=== PATIENT | female | born 1980 | race African-American/Black ===

== ENCOUNTER 2020-05-06 21:32 | Emergency (ER) | payer BC, SELFPAY ==
--- NOTE | ~2020-05-06 | XR_ITS ---
XR knee LT 2V DATE: 05/06/2020 22:14 INDICATION: Medial patellar pain, hurts to walk. No injury. TECHNIQUE: AP and lateral views COMPARISON: 08/18/2018 left knee FINDINGS: There is moderate loss of knee joint space and periarticular spurring at the medial compart ment, consistent with osteoarthritis. No fracture, dislocation, joint effusion, radiopaque intra-articular loose body or chondrocalcinosis. No periosteal reaction or bone destruction. IMPRESSION: Medial compartment osteoarthritis Reviewed, dictated and finalized at location A.
[2020-05-06 21:54] VITALS: BP 138/96; PULSE 106; RESP 18; TEMP 36.1; O2SAT 98
--- NOTE | 2020-05-06 22:17 | ED.EXTPRO ---
HPI - Extremity Problem General Chief complaint: Extremity Problem,Nontraumatic Stated complaint: left knee pain Time Seen by Provider: 05/06/20 22:09 Source: patient Mode of arrival: ambulatory Limitations: no limitations History of Present Illness HPI Narrative: 39-year-old with a history of hypertension here with complaints of left knee pain on and off for last several weeks however today she accidentally twisted her knee and ever since then she has been having pain. She denies any direct trauma no other complaints expressed at this time. MD Complaint: joint paint Onset (ago): week(s) (1) Pain Consistency: constant Location: left Quality: aching Radiation: none Relieving factors: immobilization Exacerbating factors: range of motion and walking Associated symptoms: denies other symptoms Related Data Home Medications Medication Instructions Recorded Confirmed lisinopril-hydrochlorothiazide 10 tablet PO DAILY 03/06/19 03/06/19 Allergies Allergy/AdvReac Type Severity Reaction Status Date / Time No Known Allergies Allergy Unverified 03/06/19 11:51 Review of Systems Review of Systems: All systems reviewed & are unremarkable except as noted in HPI and below Constitutional: Constitutional: Reports no additional constitutional complaints Eyes: Eyes: Reports no additional eye complaints ENT: Reports system reviewed and no additional complaints, except as documented Cardiovascular: Cardiovascular: Reports no additional cardiovascular complaints Respiratory: Respiratory: Reports no additional respiratory complaints Musculoskeletal: Musculoskeletal: Reports as per HPI Neurologic: Reports system reviewed and no additional complaints, except as documented Exam Narrative: Exam Narrative: GENERAL: Well-appearing, morbidly obese, and in no acute distress. HEAD: Normocephalic, atraumatic. EYES: PERRLA and EOMI. NECK: Supple. CHEST: Clear to auscultation. No respiratory distress. HEART: Regular rate and rhythm. No murmur heard. Normal peripheral pulses. EXTREMITIES: Normal range of motion. No edema. Left knee no joint effusion .painful ROM SKIN: Warm, dry, no rash. NEURO: No focal deficits. Alert and oriented x3. PSYCH: Normal mood and affect. Course Course Emergency Course: Inform patient about her eye x-ray findings. Advised Manuel wrap and take pain medication as prescribed. Vital Signs Vital signs: Vital Signs Temperature 36.1 C L 05/06/20 21:54 Pulse Rate 106 H 05/06/20 21:54 Respiratory Rate 18 05/06/20 21:54 Blood Pressure 138/96 H 05/06/20 21:54 Pulse Oximetry 98 05/06/20 21:54 Temperature 36.1 C L 05/06/20 21:54 Pulse Rate 106 H 05/06/20 21:54 Respiratory Rate 18 05/06/20 21:54 Blood Pressure 138/96 H 05/06/20 21:54 Pulse Oximetry 98 05/06/20 21:54 Discharge Plan Discharge Clinical Impression: Knee pain, left Qualifiers: Chronicity: acute Qualified Code(s): M25.562 - Pain in left knee Patient Disposition: Home, Self-Care Condition: Stable Instructions: Knee Sprain (ED) Additional Instructions: take pain medication as prescribed , follow with your Orthopedic as scheduled. Prescriptions: New tramadol [Ultram] 50 mg tablet 50 mg PO Q6H PRN (Reason: pain) Qty: 20 RF: 0 No Action lisinopril-hydrochlorothiazide 10-12.5 mg tablet 10 tablet PO DAILY RF: 0 cetirizine [Zyrtec] 10 mg tablet 10 mg PO DAILY 60 Days Qty: 60 RF: 0 prednisone 20 mg tablet 60 mg PO DAILY 5 Days Qty: 15 RF: 0 benzonatate [Tessalon Perles] 100 mg capsule 100 mg PO TID Qty: 30 RF: 0 albuterol sulfate [ProAir HFA] 90 mcg/actuation HFA aerosol inhaler 2 puff INHALATION QID Qty: 8.5 RF: 0 fluticasone propionate [Allergy Relief (fluticasone)] 50 mcg/actuation spray,suspension 1 spray NASAL DAILY Qty: 18.2 RF: 0 amoxicillin-pot clavulanate 875-125 mg tablet 1 tablet PO Q12H Qty: 20 RF: 0 Follow-up/Referrals: Zi Trujillo MD [y
== END 2020-05-06 22:45 | disposition home or self-care (01) ==
PROVIDERS: Emergency Provider Family Medicine; PCP Physician Assistant
DX: M25.562 Pain in left knee (principal); I10 Essential (primary) hypertension
CPT/HCPCS: 73560; 99283

== ENCOUNTER 2020-11-10 19:06 | Emergency (ER) | payer OTHER, BC, SELFPAY ==
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
[2020-11-10 19:32] VITALS: BP 129/90; PULSE 104; RESP 18; TEMP 36.9; O2SAT 100
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
== END 2020-11-10 21:15 | disposition home or self-care (01) ==
PROVIDERS: Emergency Provider Registered Nurse; PCP Physician Assistant
DX: S16.1XXA Strain of muscle, fascia and tendon at neck level, initial encounter (principal); Z79.1 Long term (current) use of non-steroidal anti-inflammatories (NSAID); Z79.84 Long term (current) use of oral hypoglycemic drugs; E11.9 Type 2 diabetes mellitus without complications; I10 Essential (primary) hypertension; V43.52XA Car driver injured in collision with other type car in traffic accident, initial encounter; Y92.219 Unspecified school as the place of occurrence of the external cause
CPT/HCPCS: 72050; 99213; G0463

== ENCOUNTER 2021-04-02 10:10 | Emergency (ER) | payer BC, SELFPAY ==
[2021-04-02 10:24] VITALS: BP 130/89; PULSE 88; RESP 18; TEMP 36.6; O2SAT 100
--- NOTE | 2021-04-02 10:24 | ED.BACK ---
HPI - Back Pain/Injury General Chief Complaint: Extremity Problem,Nontraumatic Stated Complaint: knee and back pain Time Seen by Provider: 04/02/21 10:25 Source: patient, RN notes reviewed and old records reviewed Mode of arrival: ambulatory Limitations: no limitations History of Present Illness HPI Narrative: 40-year-old female presents to the [facility] with bilateral knee pain and mid back pain for over 3 weeks. States she ran out of her meloxicam and the pain has been getting worse. History of left knee orthoscopic surgery in the past. Denies any traumas. No falls. No numbness or tingling in extremities. MD elicited complaint: back pain Pertinent past history: prior back pain Related Data Home Medications Medication Instructions Recorded Confirmed furosemide 20 mg PO DAILY 11/10/20 04/02/21 lisinopril 10 mg PO DAILY 11/10/20 04/02/21 meloxicam 15 mg PO DAILY 11/10/20 04/02/21 metformin 500 mg PO DAILY 11/10/20 04/02/21 Allergies Allergy/AdvReac Type Severity Reaction Status Date / Time No Known Allergies Allergy Verified 11/10/20 19:59 Review of Systems Review of Systems: All systems reviewed & are unremarkable except as noted in HPI and below Constitutional: Constitutional: Reports no additional constitutional complaints, Denies chills, Denies fever(s) and Denies weakness Eyes: Eyes: Reports no additional eye complaints ENT: Reports system reviewed and no additional complaints, except as documented Cardiovascular: Cardiovascular: Reports no additional cardiovascular complaints and Denies chest pain Respiratory: Respiratory: Reports no additional respiratory complaints, Denies cough and Denies dyspnea Gastrointestinal: Gastrointestinal: Reports no additional gastrointestinal complaints, Denies abdominal pain, Denies nausea and Denies vomiting Musculoskeletal: Musculoskeletal: Reports as per HPI, Reports back pain, Reports arthralgias (Bilateral knees), Denies joint swelling and Denies numbness Integumentary/Breasts: Skin/Breast: Reports system reviewed and no additional complaints, except as docu Neurologic: Reports system reviewed and no additional complaints, except as documented, Denies focal weakness, Denies numbness and Denies weakness Psychiatric: Psychiatric: Reports no additional psychiatric complaints Allergic/Immunologic: Allergic/Immunologic: Reports no additional allergic/immunologic complaints [facility] Past Medical History Medical History (Updated 04/02/21 @ 19:49 by Leandra Coe) Diabetes Hypertension Inflammation of joint of left knee Obesity Surgical History Surgical History No history of previous surgery Family History Family History Other Family history non-contributory Social History Social History Smoking status: Never smoker Alcohol intake: unknown Substance use: unknown Gender identity (if verbalized by the patient): Female Comments At the time of my signature, I reviewed and agree with the nursing past medical, surgical, social, and family history. There is no relevant family history pertinent to the patient complaint. Exam Const: General: healthy appearing, no acute distress and alert Nutritional Appearance: well nourished and obese morbidly obese Orientation/consciousness: patient oriented x3 Limitations: no limitations HENMT: Head: normal to inspection Ears: external ears normal Eyes: Pupils: Equal, round and reactive pupils present Neck: Neck: normal visual inspection, no lymphadenopathy and no meningeal signs Chest: Chest palpation & inspection: normal inspection of the chest Resp: Effort & Inspection: normal respiratory effort and no use of accessory muscles Auscultation: clear to auscultation bilaterally, no crackles, no rales, no rhonchi and no wheezes Cardio: Rate: regular rate Rhythm: r
== END 2021-04-02 10:37 | disposition home or self-care (01) ==
PROVIDERS: Emergency Provider Nurse Practitioner; PCP Physician Assistant
DX: M25.562 Pain in left knee (principal); M25.561 Pain in right knee; M54.9 Dorsalgia, unspecified; E11.9 Type 2 diabetes mellitus without complications; I10 Essential (primary) hypertension; E66.9 Obesity, unspecified; Z68.43 Body mass index [BMI] 50.0-59.9, adult
CPT/HCPCS: 99213; G0463

== ENCOUNTER 2021-06-18 11:48 | Emergency (ER) | payer BC, SELFPAY ==
--- NOTE | ~2021-06-18 | CT_ITS ---
EXAMINATION: CT abdomen pelvis w con DATE: 06/18/2021 13:14 INDICATION: Abdominal pain TECHNIQUE: Computed tomography (CT) of the abdomen and pelvis was performed with 100 mL Omnipaque-350 intravenous contrast. Automated exposure control and iterative reconstruction technique were employe d. The dose-length product was 1539.51 mGy-cm. COMPARISON: None FINDINGS: Lung bases are clear. Heart size is normal. No pericardial or pleural effusion. Cholecystectomy clips the gallbladder fossa. Liver, spleen, pancreas, bilateral adrenal glands and kidneys are normal. [place] els including the appendix are normal. The bladder, anteverted uterus and bilateral adnexa are unrema rkable. No free intraperitoneal gas or fluid. No pathologically enlarged abdominal or pelvic lymphade nopathy. Moderate thoracic spondylosis. Mild to moderate bilateral hip osteoarthritis. Small fat-cont aining umbilical hernia with small amount of periumbilical stranding IMPRESSION: 1. No acute intra-abdominal/pelvic process. Reviewed, dictated and finalized at location B.
[2021-06-18 11:56] VITALS: BP 179/94; PULSE 102; RESP 20; TEMP 37; O2SAT 100
[2021-06-18 12:26] LABS: Basophils Absolute Auto 0.1 K/mm3 (0.0-0.1); Basophils Percent Auto 0.4 % (0.2-1.2); Eosinophils Absolute Auto 0.1 K/mm3 (0-0.3); Eosinophils Percent Auto 0.9 % (0-4.4); Hemoglobin 11.3 g/dL (12.0-15.0); Immature Granulocyte Absolute 0.03 K/mm3 (0.00-0.031); Immature Granulocyte Percent A 0.3 % (0-0.5); Lymphocytes Absolute Auto 3.57 K/mm3 (0.9-3.2); Lymphocytes Percent Auto 30.6 % (18.3-44.2); Mean Corpuscular HGB Conc 31.4 g/dl (32-36); Mean Corpuscular Hemoglobin 21.8 pg (26-34); Mean Corpuscular Volume 69.4 fl (80-100); Mean Platelet Volume 8.8 fl (7.4-10.4); Monocytes Absolute Auto 0.6 K/mm3 (0.1-0.6); Monocytes Percent Auto 5.5 % (2.6-8.5); Neutrophils Absolute Auto 7.3 K/mm3 (1.3-6.7); Neutrophils Percent Auto 62.3 % (45.5-73.1); Platelet Count Result 551 k/mm3 (150-375); Red Blood Count 5.19 M/mm3 (4.2-5.4); Red Cell Distribution Width 17.2 % (11.5-14.5); White Blood Count 11.7 K/mm3 (4.5-10.0)
--- NOTE | 2021-06-18 12:36 | ED.ABDPAIN ---
HPI - Abdominal Pain General Chief Complaint: Abdominal Pain Stated Complaint: low abd pain Time Seen by Provider: 06/18/21 12:24 Source: patient Mode of arrival: ambulatory Limitations: no limitations History of Present Illness HPI narrative: Patient is a 40-year-old female complaining of lower abdominal pain, dull, 6 out of 10, nonradiating started 2 days ago. Patient denies any chest pain, shortness of breath, nausea,, diarrhea, urinary symptoms, fever or chills. Related Data Home Medications Medication Instructions Recorded Confirmed furosemide 20 mg PO DAILY 11/10/20 04/02/21 lisinopril 10 mg PO DAILY 11/10/20 04/02/21 meloxicam 15 mg PO DAILY 11/10/20 04/02/21 metformin 500 mg PO DAILY 11/10/20 04/02/21 Allergies Allergy/AdvReac Type Severity Reaction Status Date / Time No Known Allergies Allergy Verified 11/10/20 19:59 Review of Systems Review of Systems: All systems reviewed & are unremarkable except as noted in HPI and below Constitutional: Constitutional: Denies body ache(s), Denies chills, Denies excessive sweating, Denies fatigue, Denies fever(s), Denies headache(s), Denies lethargy, Denies malaise, Denies weakness and Denies weight loss Eyes: Eyes: Denies blurry vision, Denies change in vision and Denies loss of vision ENT: Denies dizziness, Denies ear discharge, Denies headache(s), Denies lip swelling, Denies epistaxis, Denies nasal congestion, Denies neck pain, Denies throat swelling and Denies tongue swelling Cardiovascular: Cardiovascular: Denies chest pain, Denies chest pain at rest, Denies chest pain with activity, Denies diaphoresis, Denies rapid heart rate, Denies edema, Denies irregular heart rhythm, Denies lightheadedness, Denies palpitations, Denies dyspnea and Denies dyspnea on exertion Respiratory: Respiratory: Denies chest congestion, Denies cough, Denies hemoptysis, Denies dyspnea and Denies dyspnea on exertion Gastrointestinal: Gastrointestinal: Denies melena, Denies hematochezia, Denies diarrhea, Denies nausea, Denies vomiting and Denies hematemesis Musculoskeletal: Musculoskeletal: Denies abnormal gait, Denies deformity, Denies joint swelling, Denies limited range of motion, Denies neck pain and Denies numbness Neurologic: Denies Abnormal speech present, Denies abnormal gait, Denies confusion, Denies dizziness, Denies headache(s), Denies focal weakness, Denies loss of vision, Denies numbness, Denies Other visual disturbances, Denies Sensory deficit (Neuro) and Denies weakness Psychiatric: Psychiatric: Denies confusion, Denies depression, Denies auditory hallucinations, Denies homicidal ideation and Denies suicidal ideation Endocrine: Endocrine: Denies cold intolerance, Denies excessive sweating, Denies fatigue, Denies heat intolerance and Denies palpitations Hematologic/Lymphatic: Hematologic/Lymphatic: Denies easy bleeding and Denies easy bruising Allergic/Immunologic: Allergic/Immunologic: Denies lip swelling, Denies throat swelling and Denies tongue swelling PMFSH Past Medical History Medical History Diabetes Hypertension Inflammation of joint of left knee Obesity Surgical History Surgical History No history of previous surgery Family History Family History Other Family history non-contributory Social History Social History Smoking status: Never smoker Alcohol intake: unknown Substance use: unknown Gender identity (if verbalized by the patient): Female Exam Const: General: cooperative, healthy appearing, comfortable, no acute distress, well developed, alert and awake; No confusion Orientation/consciousness: oriented to person, oriented to place, oriented to time, patient oriented x3 and No confusion Limitations: no limitations HENMT: He
[2021-06-18 12:52] LABS: Alanine Aminotransferase 13 U/L (4-35); Albumin Level 4.4 g/dL (3.5-5.1); Alkaline Phosphatase 77 U/L (38-126); Anion Gap 7 mmol/L (8-16); Aspartate Amino Transferase 23 U/L (14-36); Bilirubin,Total 0.6 mg/dL (0.2-1.3); Blood Urea Nitrogen 13 mg/dL (7-17); Calcium 9.2 mg/dL (8.4-10.2); Carbon Dioxide 29 mmol/L (22-30); Chloride 100 mmol/L (98-107); Estimated CRCL calculation 149 ml/min; Estimated Glomerular Filt Rate > 60; Glucose 144 mg/dL (65-110); Lipase 39 U/L (23-300); Potassium 4.3 mmol/L (3.4-5.0); Sodium 136 mmol/L (137-145)
[2021-06-18 12:56] LABS: Add Urine Microscopic? YES; Appearance Urine Clear (Clear); Bacteria Urine Trace /hpf; Bilirubin Urine Negative (Negative); Blood Urine Negative (Negative); Color Urine Yellow (Yellow); Glucose Urine UA Negative (Negative); Ketones Urine Negative (Negative); Leukocyte Esterase Ur Trace LEU/UL (Negative); Mucus Urine Rare /lpf; Nitrate Urine Negative (Negative); Protein Urine Negative (Negative); RBC Urine 0-2 /hpf (0-2); Specific Grav Ur 1.012 (1.001-1.035); Squamous Epithelial Cell Urine Occasional /hpf (Few); Urobilinogen Urine Negative mg/dL (<2.0); WBC Urine 0-3 /hpf
[2021-06-18] MEDS: SODIUM CHLORIDE 0.9% IV 1,000 ML 999 ML IV CONT (13:02)
[2021-06-18] MEDS: KETOROLAC 30 MG/ML VIAL (*BKC) IV PUSH (14:16)
[2021-06-18 14:25] VITALS: BP 153/104; PULSE 83; RESP 16; O2SAT 98
== END 2021-06-18 14:29 | disposition home or self-care (01) ==
PROVIDERS: Emergency Provider Emergency Medicine; PCP Physician Assistant
DX: R10.30 Lower abdominal pain, unspecified (principal); E11.9 Type 2 diabetes mellitus without complications; I10 Essential (primary) hypertension; E66.9 Obesity, unspecified; Z68.43 Body mass index [BMI] 50.0-59.9, adult; Z79.84 Long term (current) use of oral hypoglycemic drugs
CPT/HCPCS: 36415; 74177; 80053; 81001; 81025; 83690; 85025; 96361; 96374; 99284; J1885; J7030; Q9967

== ENCOUNTER 2021-08-11 19:42 | Emergency (ER) | payer BC, SELFPAY ==
--- NOTE | ~2021-08-11 | XR_ITS ---
EXAM: XR knee RT 2V DATE: 08/11/2021 21:40 HISTORY: pain X 1 MONTH, atraumatic, NKI, PAIN WITH MOVEMENT . COMPARISON: None available. FINDINGS: Normal mineralization. No fracture or dislocation. No lytic or blastic lesion. Mild medial joint space narrowing. Patellofemoral and medial osteophytosis. No erosion or periosteal change. Sof t tissues within normal limits. IMPRESSION: No acute osseous finding in the right knee. Reviewed, dictated and finalized at location K.
[2021-08-11 19:55] VITALS: BP 147/94; PULSE 98; RESP 18; TEMP 36.9; O2SAT 100
[2021-08-11] MEDS: KETOROLAC 30 MG/ML VIAL (*BKC) IM (21:35)
--- NOTE | 2021-08-11 23:20 | ED.GENADULT ---
HPI - General Adult General Chief complaint: Extremity Injury, Lower <MIMI Boston Last Filed: 08/12/21 03:59> Stated complaint: right knee pain <MIMI Boston Last Filed: 08/12/21 03:59> Time Seen by Provider: 08/11/21 21:01 <MIMI Boston Last Filed: 08/12/21 03:59> History of Present Illness HPI narrative: Patient is a 41-year-old female with a history of arthritis, meniscus tear on the left, here for evaluation of right-sided knee pain for the past month. Patient denies known injury to her knee, but states that she has a history of similar sensation in her left knee when she was diagnosed with a meniscus tear. Patient has been attempting Tylenol without much relief of her pain, last taken earlier today. She has been walking and bearing weight with pain. Denies fevers, chills, falls, clicking, catching of the knee. <MIMI Boston Last Filed: 08/12/21 03:59> Related Data Home medications: Home Medications Medication Instructions Recorded Confirmed furosemide 20 mg tablet 20 mg PO DAILY 11/10/20 04/02/21 lisinopril 10 mg tablet 10 mg PO DAILY 11/10/20 04/02/21 meloxicam 15 mg tablet 15 mg PO DAILY 11/10/20 04/02/21 metformin 500 mg tablet 500 mg PO DAILY 11/10/20 04/02/21 <MIMI Boston Last Filed: 08/12/21 03:59> Allergies/adverse reactions: Allergies Allergy/AdvReac Type Severity Reaction Status Date / Time No Known Allergies Allergy Verified 08/11/21 19:57 <MIMI Boston Last Filed: 08/12/21 03:59> Review of Systems Review of Systems: Gen.: Denies fevers or chills Eyes: Denies eye pain or visual change ENT: Denies congestion Respiratory: Denies shortness of breath or cough CV: Denies chest pain or palpitations GI: Denies abdominal pain nausea, emesis or diarrhea denies burning, urgency, frequency or hematuria Musculoskeletal: Reports knee pain on the right Neuro: Denies numbness, tingling, weakness or focal weakness Skin: Denies rash Except as documented, all other systems reviewed and negative <Brook Petersen PA-C - Last Filed: 08/12/21 03:59> [facility] Past Medical History Medical History: Medical History Diabetes Hypertension Inflammation of joint of left knee Obesity <Brook Petersen PA-C - Last Filed: 08/12/21 03:59> Surgical History Surgical History: Surgical History No history of previous surgery <Brook Petersen PA-C - Last Filed: 08/12/21 03:59> Family History Family History: Family History Other Family history non-contributory <Brook Petersen PA-C - Last Filed: 08/12/21 03:59> Social History Social History: Social History Smoking status: Never smoker Alcohol intake: unknown Substance use: unknown Gender identity (if verbalized by the patient): Female <Brook Petersen PA-C - Last Filed: 08/12/21 03:59> Exam Narrative: Gen: Alert, oriented, uncomfortable appearing Eyes: EOMI, no icterus Pulm: Respirations even and unlabored, symmetric thorax expansion, no audible stridor or visible cyanosis CV: DP and PT pulses heard on Doppler bilaterally. GI: No distension, no voluntary/involuntary guarding Neuro: AOx4, moves all extremities without apparent difficulty or weakness, follows commands MSK: No bony tenderness to palpation along right patella. She has active range of motion in the right knee but does note that it is most painful when she flexes her knee. Anterior and posterior drawer test negative. Skin: No jaundice, no visible bruising, rashes, lesions or wounds on exposed skin Psych: Normal mood/affect, insight/judgement good, adequate fund of knowledge,
== END 2021-08-11 22:35 | disposition home or self-care (01) ==
PROVIDERS: Emergency Provider Emergency Medicine; PCP Physician Assistant
DX: M25.561 Pain in right knee (principal); E11.9 Type 2 diabetes mellitus without complications; I10 Essential (primary) hypertension; M19.90 Unspecified osteoarthritis, unspecified site; E66.9 Obesity, unspecified; Z68.43 Body mass index [BMI] 50.0-59.9, adult; Z79.84 Long term (current) use of oral hypoglycemic drugs
CPT/HCPCS: 73560; 96372; 99283; J1885

== ENCOUNTER 2021-08-14 15:13 | Emergency (ER) | payer BC, SELFPAY ==
[2021-08-14 15:25] VITALS: BP 151/82; PULSE 95; RESP 18; TEMP 36.5; O2SAT 99
--- NOTE | 2021-08-14 17:07 | ED.EXTPRO ---
HPI - Extremity Problem General Chief complaint: Extremity Problem,Nontraumatic Stated complaint: right knee pain Time Seen by Provider: 08/14/21 17:03 History of Present Illness HPI Narrative: Patient is a 41-year-old female with a history of arthritis in her knees and meniscal tear on the left s/p repair here for evaluation of atraumatic right knee pain. Patient states the pain developed one month ago, is worse with ambulation and flexion of her knee. Patient has been bearing weight but states it is painful. She was seen in the ED and evaluated by me 2 days ago for the same complaint. XR was negative with no effusion. She does have an appointment with Ortho in 2 days, but states the pain was too severe to wait. She has only been using Tylenol for her pain. Denies fevers, chills, redness, leg swelling, systemic symptoms. Patient has history of meniscal tear on the left and states it feels quite similar. Related Data Home Medications Medication Instructions Recorded Confirmed furosemide 20 mg tablet 20 mg PO DAILY 11/10/20 04/02/21 lisinopril 10 mg tablet 10 mg PO DAILY 11/10/20 04/02/21 meloxicam 15 mg tablet 15 mg PO DAILY 11/10/20 04/02/21 metformin 500 mg tablet 500 mg PO DAILY 11/10/20 04/02/21 Allergies Allergy/AdvReac Type Severity Reaction Status Date / Time No Known Allergies Allergy Verified 08/11/21 19:57 Review of Systems Review of Systems: Gen: Denies fevers or chills Eyes: Denies eye pain or visual change ENT: Denies congestion Respiratory: Denies shortness of breath or cough CV: Denies chest pain or palpitations GI: Denies abdominal pain nausea, emesis or diarrhea denies burning, urgency, frequency or hematuria Musculoskeletal: Reports right knee pain. Neuro: Denies numbness, tingling, weakness or focal weakness Skin: Denies rash Except as documented, all other systems reviewed and negative [facility] Past Medical History Medical History Diabetes Hypertension Inflammation of joint of left knee Obesity Surgical History Surgical History No history of previous surgery Family History Family History Other Family history non-contributory Social History Social History Smoking status: Never smoker Alcohol intake: unknown Substance use: unknown Gender identity (if verbalized by the patient): Female Exam Narrative: Gen: Obese. Alert, oriented, no acute distress. Eyes: EOMI, no icterus Pulm: Respirations even and unlabored, symmetric thorax expansion, no audible stridor or visible cyanosis CV: DP/PT pulses heard on Doppler signal bilaterally GI: No distension, no voluntary/involuntary guarding Neuro: AOx4, moves all extremities without apparent difficulty or weakness, follows commands MSK: Tender to palpation over medial joint line of right knee. Pain with active flexion of knee, no pain with passive range of motion. Able to bear weight but states it is painful. Non-pitting edema of bilateral ankles. No calf tenderness. Skin: No jaundice, no visible bruising, rashes, lesions or wounds on exposed skin Psych: Normal mood/affect, insight/judgement good, adequate fund of knowledge, recent/remote memory intact Course Vital Signs Vital signs: Vital Signs Temperature 97.7 F 08/14/21 15:25 Pulse Rate 95 08/14/21 15:25 Respiratory Rate 18 08/14/21 15:25 Blood Pressure 151/82 H 08/14/21 15:25 Pulse Oximetry 99 08/14/21 15:25 Oxygen Delivery Room Air 08/14/21 15:25 Temperature 97.7 F 08/14/21 15:25 Pulse Rate 95 08/14/21 15:25 Respiratory Rate 18 08/14/21 15:25 Blood Pressure 151/82 H 08/14/21 15:25 Pulse Oximetry 99 08/14/21 15:25 Oxygen Delivery Room Air 08/14/21 15:25 MDM - Extremity (Nontraumatic) MDM Narrative
[2021-08-14] MEDS: KETOROLAC 30 MG/ML VIAL (*BKC) IM (17:34)
== END 2021-08-14 18:40 | disposition home or self-care (01) ==
PROVIDERS: Emergency Provider Family Medicine
DX: M25.561 Pain in right knee (principal); M17.0 Bilateral primary osteoarthritis of knee; E11.9 Type 2 diabetes mellitus without complications; I10 Essential (primary) hypertension; E66.9 Obesity, unspecified; Z68.43 Body mass index [BMI] 50.0-59.9, adult; Z79.84 Long term (current) use of oral hypoglycemic drugs
CPT/HCPCS: 96372; 99283; J1885

== ENCOUNTER 2022-09-06 15:34 | Emergency (ER) | payer OTHER, BC, SELFPAY ==
--- NOTE | ~2022-09-06 | XR_ITS ---
EXAMINATION: XR shoulder RT min 2V DATE: 09/06/2022 16:24 INDICATION: Right shoulder pain. TECHNIQUE: 4 views of right shoulder were obtained. COMPARISON: None. FINDINGS: Bone alignment is normal. No fracture. There is mild osteoarthritis of glenohumeral joint a nd moderate osteoarthritis of acromioclavicular joint. IMPRESSION: 1. Polyarticular osteoarthritis. Reviewed, dictated and finalized at location A.
[2022-09-06 15:52] VITALS: BP 153/92; PULSE 83; RESP 18; TEMP 37; O2SAT 100
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
== END 2022-09-06 16:47 | disposition home or self-care (01) ==
PROVIDERS: Emergency Provider Nurse Practitioner; PCP Physician Assistant
DX: S46.811A Strain of other muscles, fascia and tendons at shoulder and upper arm level, right arm, initial encounter (principal); V49.40XA Driver injured in collision with unspecified motor vehicles in traffic accident, initial encounter; E11.9 Type 2 diabetes mellitus without complications; I10 Essential (primary) hypertension; E66.9 Obesity, unspecified; Z68.43 Body mass index [BMI] 50.0-59.9, adult
CPT/HCPCS: 73030; 99213; G0463

== ENCOUNTER 2022-09-17 18:43 | Emergency (ER) | payer BC, SELFPAY ==
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
[2022-09-17 18:54] VITALS: BP 157/102; PULSE 101; RESP 16; TEMP 37.2; O2SAT 98
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
== END 2022-09-17 20:00 | disposition home or self-care (01) ==
PROVIDERS: Emergency Provider Nurse Practitioner Family; PCP Physician Assistant
DX: S29.012D Strain of muscle and tendon of back wall of thorax, subsequent encounter (principal); V49.9XXD Car occupant (driver) (passenger) injured in unspecified traffic accident, subsequent encounter; E11.9 Type 2 diabetes mellitus without complications; I10 Essential (primary) hypertension; E66.9 Obesity, unspecified; Z68.41 Body mass index [BMI] 40.0-44.9, adult
CPT/HCPCS: 72072; 99213; G0463

== ENCOUNTER 2023-02-10 11:22 | Emergency (ER) | payer BC, SELFPAY ==
--- NOTE | 2023-02-10 11:26 | ED.GENADULT ---
HPI - General Adult General Chief complaint: Dental/Oral Stated complaint: sinus pain,tooth pain left side Time Seen by Provider: 02/10/23 11:31 Source: patient, RN notes reviewed and old records reviewed Mode of arrival: ambulatory Limitations: no limitations History of Present Illness HPI narrative: 42-year-old female presents to the [facility] with complaints of sinus pain, tooth pain. Patient reports sinus pain x2 weeks has taken Sudafed Patient reports that upper dental pain for the last couple of days. Has decayed teeth. Poor dentition. Tried calling a dentist can not get in until July Related Data Home Medications Medication Instructions Recorded Confirmed lisinopril 10 mg tablet 10 mg PO DAILY 11/10/20 02/10/23 dulaglutide 3 mg/0.5 mL 3 mg subcut DIRECTED 09/17/22 02/10/23 subcutaneous pen injector (Trulicity) Allergies Allergy/AdvReac Type Severity Reaction Status Date / Time No Known Allergies Allergy Verified 02/10/23 11:30 Review of Systems Review of Systems: All systems reviewed & are unremarkable except as noted in HPI and below Constitutional: Constitutional: Reports no additional constitutional complaints Eyes: Eyes: Reports no additional eye complaints ENT: Reports as per HPI, Reports dental pain and Reports sinus pressure Cardiovascular: Cardiovascular: Reports no additional cardiovascular complaints, Denies chest pain and Denies dyspnea Respiratory: Respiratory: Reports no additional respiratory complaints, Denies chest congestion, Denies cough and Denies dyspnea Gastrointestinal: Gastrointestinal: Reports no additional gastrointestinal complaints, Denies abdominal pain, Denies nausea and Denies vomiting Musculoskeletal: Musculoskeletal: Reports no additional musculoskeletal complaints Integumentary/Breasts: Skin/Breast: Reports system reviewed and no additional complaints, except as docu Neurologic: Reports system reviewed and no additional complaints, except as documented Psychiatric: Psychiatric: Reports no additional psychiatric complaints Allergic/Immunologic: Allergic/Immunologic: Reports no additional allergic/immunologic complaints PMFSH Past Medical History Medical History Diabetes Hypertension Inflammation of joint of left knee Obesity Surgical History Surgical History No history of previous surgery Family History Family History Other Family history non-contributory Social History Social History Smoking status: Never smoker Alcohol intake: unknown Substance use: unknown Living arrangements: with family Gender identity (if verbalized by the patient): Female Comments At the time of my signature, I reviewed and agree with the nursing past medical, surgical, social, and family history. There is no relevant family history pertinent to the patient complaint. Exam Const: General: cooperative, healthy appearing, comfortable, no acute distress, well developed, alert and well nourished Nutritional Appearance: well nourished and obese Orientation/consciousness: patient oriented x3 Limitations: no limitations HENMT: Head: normal to inspection Ears: hearing grossly normal bilaterally and external ears normal Face/Nose/Sinus: Normal external nose present, Normal nares present, Normal nasal mucous membranes and turbinates present, normal facial exam and face symmetric Face and sinus: normal facial exam, face symmetric, no ecchymosis, no erythema and sinus tenderness frontal and maxillary Mouth: Yes Normal oral and palatal mucosa present, Yes lip normal and Yes moist mucous membranes Teeth and gingiva: poor dentition (Decayed teeth left upper incisor, teeth 6 and 7) Throat: posterior oropharynx normal and uvula midline Eyes: General: a
[2023-02-10 11:30] VITALS: BP 143/100; PULSE 88; RESP 16; TEMP 37.1; O2SAT 99
[2023-02-10 11:32] VITALS: BP 143/100; PULSE 88; RESP 16; TEMP 37.1; O2SAT 99
== END 2023-02-10 11:44 | disposition home or self-care (01) ==
PROVIDERS: Emergency Provider Nurse Practitioner; PCP Physician Assistant
DX: J32.9 Chronic sinusitis, unspecified (principal); K02.9 Dental caries, unspecified; E11.9 Type 2 diabetes mellitus without complications; I10 Essential (primary) hypertension; Z79.899 Other long term (current) drug therapy
CPT/HCPCS: 99213; G0463

== ENCOUNTER 2024-01-25 08:06 | Emergency (ER) | payer BC, SELFPAY ==
--- NOTE | 2024-01-25 08:11 | ED.URI ---
HPI - URI/Sore Throat General Chief Complaint: Upper Respiratory Infection Stated Complaint: sinus issue Time Seen by Provider: 01/25/24 08:11 Source: patient Mode of arrival: ambulatory Limitations: no limitations History of Present Illness HPI Narrative: 43-year-old female presents with complaint of sinus congestion, postnasal drainage, sinus pressure, coughing, intermittent sore throat, fatigue for the last 8-10 days. Patient taking [id number] DayQuil NyQuil cold and Sinus to treat symptoms. Reports no improvement. Symptoms worse past 2-3 days, concerned for bacterial sinusitis. No chest pain or shortness of breath. Patient's blood pressure is elevated today. Did not take her blood pressure medications This morning. All systems reviewed and negative except as noted above. Related Data Home Medications Medication Instructions Recorded Confirmed lisinopril 10 mg tablet 10 mg PO DAILY 11/10/20 02/10/23 dulaglutide 3 mg/0.5 mL 3 mg subcut DIRECTED 09/17/22 02/10/23 subcutaneous pen injector (Trulicity) Allergies Allergy/AdvReac Type Severity Reaction Status Date / Time No Known Allergies Allergy Verified 01/25/24 08:12 Review of Systems Review of Systems: CONSTITUTIONAL: Denies fever, chills, or sweats. reports fatigue. EYES: Denies visual changes, redness, or discharge. ENT: Reports rhinorrhea, congestion, sinus pressure, postnasal drainage, sore throat. Denies otalgia. CARDIOVASCULAR: Denies chest pain, palpitations, or edema. RESPIRATORY: reports cough . Denies dyspnea. GASTROINTESTINAL: Denies abdominal pain, nausea, vomiting, or diarrhea. GENITOURINARY: Denies dysuria or hematuria. SKIN: Denies rash or itching. MUSCULOSKELETAL: Denies back pain, joint pain, or myalgia. NEUROLOGIC: Denies headache, numbness, or weakness. PSYCHIATRIC: Denies anxiety or depression. All other systems reviewed are negative, except as documented in HPI. PENDING SALE TO [facility] Past Medical History Medical History Diabetes Hypertension Inflammation of joint of left knee Obesity Surgical History Surgical History No history of previous surgery Family History Family History Other Family history non-contributory Social History Social History Smoking status: Never smoker Alcohol intake: unknown Substance use: unknown Living arrangements: with family Gender identity (if verbalized by the patient): Female Comments At time of signature, agree with nursing past medical, surgical, social and family history. There is no relevant family history pertinent to the presenting complaint. Exam Narrative: GENERAL: This is a well-nourished, well-developed patient, Patient ill-appearing but no acute distress HEAD: normocephalic, atraumatic. EYES: PERRL. Sclera clear/white. Vision is grossly intact. EARS: External ears normal, auditory canals clear and without drainage, TMs normal without perforation. Hearing grossly intact. NOSE: External nose normal with Congestion, purulent nasal drainage, erythema swelling to bilateral nares THROAT: Mucous membranes moist, purulent postnasal drainage with mild erythema. No swelling or exudates. NECK: Neck supple, non-tender without lymphadenopathy, masses or thyromegaly. CARDIOVASCULAR: Regular rate and rhythm without murmurs, gallops, or rubs. RESPIRATORY: Clear to auscultation. Breath sounds equal bilaterally. No wheezes, rales, or rhonchi. SKIN: warm, Dry, intact with no suspicious lesions or rash, good texture and turgor. NEURO: awake, alert, and oriented to person, place and time. There were no obvious focal neurologic abnormalities. EXTREMITIES: No joint tenderness, effusion, or edema noted. Course Course Level of Care: Express Care Visit Vital Signs Vital signs: Vital Signs Temperature 36.5 C 01/25/24 08:16 Pulse Rate 111 H 01/25/24 08:16 Respiratory Rate 16 01/25/24 08:16 Blood Pressure 183/110 H 01/25/24 08:16 Pulse Oximetry 98 01/25/24 08:16 Oxygen Delivery Room Air 01/25/24 08:16 Temperature 36.5 C 01/25/24 08:16 Pulse Rate 111 H 01/25/24 08:16 Respiratory Rate 16 01/25/24 08:16 Blood Pressure 183/110 H 01/25/24 08:16 Pulse Oximetry 98 01/25/24 08:16 Oxygen Delivery Room Air 01/25/24 08:16 reviewed, patient's blood pressure is elevated today. Did not take her blood pressure medications this morning. Educated that she needs to take her blood pressure medication every day. MDM - URI/Sore Throat MDM Narrative Medical decision making narrative: Will treat patient for bacterial sinusitis due to duration of symptoms and exam findings. Patient's blood pressure elevated, asymptomatic. Instructed to take blood pressure medication as soon as she gets home today. Patient is aware of diagnosis, understands and agrees to treatment plan. Anticipatory guidance given. Patient agrees to follow-up as directed and is aware of reasons to seek care at the emergency department. Portions of this record may have been created with voice recognition software Differential Diagnosis Differential diagnosis: Likely upper respiratory infection, sinusitis, viral infection and influenza Discharge Plan Discharge Clinical Impression: Acute bacterial sinusitis, Elevated blood pressure reading in office with diagnosis of hypertension Patient Disposition: Home, Self-Care Condition: Stable Instructions: Antibiotic Form, Sinusitis (ED) Additional Instructions: Take medications as prescribed. Take Tylenol every 6-8 hours as needed for pain. Drink at least 64 oz of water a day. Avoid [id number] decongestants as your blood pressure is elevated today. Your blood pressure was elevated today. Take your blood pressure medication when you get home. Follow-up with your primary care physician in 1 week. Prescriptions: New doxycycline hyclate 100 mg capsule 100 mg PO BID 7 Days Qty: 14 0RF fluticasone propionate [Flonase Allergy Relief] 50 mcg/actuation spray,suspension 1 spray intranasal BID Qty: 16 0RF Rx Instructions: administer into each nostril loratadine [Claritin] 10 mg tablet 10 mg PO DAILY Qty: 30 0RF No Action lisinopril 10 mg tablet 10 mg PO DAILY Trulicity 3 mg/0.5 mL pen injector 3 mg SUBCUT DIRECTED amoxicillin-pot clavulanate 875-125 mg tablet 1 tablet PO Q12H Qty: 14 0RF Follow-up/Referrals: Ernie,ARSALAN Forman [Primary Care Provider] - 1 Week ( Recheck blood pressure) Time of Disposition: 08:27
[2024-01-25 08:16] VITALS: BP 183/110; PULSE 111; RESP 16; TEMP 36.5; O2SAT 98
== END 2024-01-25 08:38 | disposition home or self-care (01) ==
PROVIDERS: Emergency Provider Nurse Practitioner Family; PCP Physician Assistant
DX: J01.90 Acute sinusitis, unspecified (principal); B96.89 Other specified bacterial agents as the cause of diseases classified elsewhere; R03.0 Elevated blood-pressure reading, without diagnosis of hypertension; E11.9 Type 2 diabetes mellitus without complications; I10 Essential (primary) hypertension; E66.9 Obesity, unspecified; Z68.44 Body mass index [BMI] 60.0-69.9, adult
CPT/HCPCS: 99213; G0463

== ENCOUNTER 2024-05-14 11:46 | Emergency (ER) | payer BC, SELFPAY ==
[2024-05-14 11:57] VITALS: BP 185/119; PULSE 84; RESP 19; TEMP 36.3; O2SAT 100
[2024-05-14 12:03] VITALS: BP 150/96
--- NOTE | 2024-05-14 12:35 | ED_ITS ---
HPI - Dental/Oral General Chief complaint: Dental/Oral Stated complaint: toothache Time Seen by Provider: 05/14/24 12:29 Source: patient and RN notes reviewed Mode of arrival: ambulatory Limitations: no limitations History of Present Illness HPI Narrative: Patient presents today complaining of left upper dental pain since yesterday. States they have been broken for quite a long time. Denies any additional sympt oms to include fever, shortness of breath, difficulty swallowing. She has been taking Tylenol and ibuprofen without relief. Currently rates her pain 10/10. She does not currently have a dentist. Related Data Home Medications ?Medication ?Instructions ?Recorded ?Confirmed ?Last Taken ?Type lisinopril 10 mg tablet 10 mg PO DAILY 11/10/20 01/25/24 Unknown History dulaglutide 3 mg/0.5 mL 3 mg subcut DIRECTED 09/17/22 01/25/24 Unknown History subcutaneous pen injector (Trulicity) cetirizine 10 mg tablet 10 mg PO DAILY 01/25/24 01/25/24 Unknown History diclofenac sodium 75 mg 75 mg PO DAILY 01/25/24 01/25/24 Unknown History tablet,delayed release ferrous sulfate 325 mg (65 mg 325 mg PO DAILY 01/25/24 01/25/24 Unknown History iron) tablet (FeroSul) fluticasone propionate 50 See Rx Instructions .Route .COMPLEX 01/25/24 01/25/24 Unknown History mcg/actuation nasal spray,suspension furosemide 20 mg tablet 20 mg PO DAILY 01/25/24 01/25/24 Unknown History simvastatin 20 mg tablet 20 mg PO DAILY 01/25/24 01/25/24 Unknown History Allergies Allergy/AdvReac Type Severity Reaction Status Date / Time No Known Allergies Allergy Verified 01/25/24 08:12 Review of Systems Review of Systems: CONSTITUTIONAL: Denies body aches, fever, chills, or sweats. EYES: Denies visual changes, redness, or discharge. ENT: Denies rhinorrhea, congestion, sore throat, or otalgia. + dental pain CARDIOVASCULAR: Denies chest pain, palpitations, or edema. RESPIRATORY: Denies cough or dyspnea. GASTROINTESTINAL: Denies abdominal pain, nausea, vomiting, or diarrhea. GENITOURINARY: Denies dysuria or hematuria. SKIN: Denies rash, itching, or wounds. MUSCULOSKELETAL: Denies back pain, joint pain, or myalgia. NEUROLOGIC: Denies headache, numbness, tingling, or weakness. PSYCH: Denies depression or anxiety. [facility] Past Medical History Medical History Obesity Inflammation of joint of left knee Diabetes Hypertension Surgical History Surgical History No history of previous surgery Family History Family History Other Family history non-contributory Social History Social History Smoking status: Never smoker Alcohol intake: unknown Substance use: unknown Living arrangements: with family Gender identity (if verbalized by the patient): Female Comments At time of signature, I have reviewed and agree with nursing past medical, surgical, social and family history unless otherwise noted. Please see nursing chart for further information. There is no relevant family history pertinent to the presenting complaint Exam Narrative: GENERAL: Well-appearing, well-nourished, and in mild to moderate pain distress. HEAD: Normocephalic, atraumatic. EYES: EOMI. No redness or drainage. Conjunctivae normal. ENT: Mucous membranes pink and moist. Gross dental decay and many missing teeth. Affected teeth number 10 and 11 are tolentino and black in color and mostly broken at the gumline. No trismus. No facial swelling or erythema noted. NECK: Normal AROM. Supple. No lymphadenopathy. CHEST: No respiratory distress. EXTREMITIES: Normal range of motion. No edema. SKIN: Warm, dry, no rash. Capillary refill normal. Normal skin turgor. NEURO: No focal deficits. Alert and oriented x3. Gait steady. PSYCH: Normal affect. No signs of depression or anxiety. Course Course Level of Care: Express Care Visit Vital Signs Vital signs: Vital Signs Temperature 97.4 F L 05/14/24 11:57 Pulse Rate 84 05/14/24 11:57 Respiratory Rate 19 05/14/24 11:57 Blood Pressure 185/119 H 05/14/24 11:57 Pulse Oximetry 100 05/14/24 11:57 Oxygen Delivery Room Air 05/14/24 11:57 Temperature 97.4 F L 05/14/24 11:57 Pulse Rate 84 05/14/24 11:57 Respiratory Rate 19 05/14/24 11:57 Blood Pressure 150/96 H 05/14/24 12:03 Pulse Oximetry 100 05/14/24 11:57 Oxygen Delivery Room Air 05/14/24 11:57 Reviewed. Second BP reading was with more appropriate sized BP cuff. MDM - Dental/Oral MDM Narrative Medical decision making narrative: Patient will be treated for presumed dental infection with amoxicillin. Instructed to follow-up with dentist as soon as possible. Anticipatory guidance given. ED precautions given. Differential Diagnosis Differential diagnosis: Likely dental caries, toothache, dental abscess and fracture of tooth Critical Care Time Critical Care Time Critical Care Time: No Discharge Plan Discharge Clinical Impression: Infected dental caries Patient Disposition: Home, Self-Care Condition: Stable Instructions: Antibiotic Form, Dental Abscess (ED) Additional Instructions: Please take the amoxicillin as prescribed until gone. Continue Tylenol and ibuprofen for pain. Follow-up with a dentist as soon as possible for further evaluation. As discussed, please go to the ER immediately if you develop fever, significant facial swelling, shortness of breath, or difficulty swallowing. Your blood pressure was elevated, 150/96, at Urgent Care. This puts you above the threshold for follow up. Please schedule a followup visit with your personal physician as soon as possible, for further evaluation and treatment. Even blood pressure exceeding 120/80 may indicate pre-hypertension. Patient Language: Tamazight Prescriptions: New amoxicillin 875 mg tablet 875 mg PO Q12H 10 Days Qty: 20 0RF No Action lisinopril 10 mg tablet 10 mg PO DAILY Trulicity 3 mg/0.5 mL pen injector 3 mg SUBCUT DIRECTED doxycycline hyclate 100 mg capsule 100 mg PO BID 7 Days Qty: 14 0RF fluticasone propionate [Flonase Allergy Relief] 50 mcg/actuation spray,suspension 1 spray intranasal BID Qty: 16 0RF Rx Instructions: administer into each nostril loratadine [Claritin] 10 mg tablet 10 mg PO DAILY Qty: 30 0RF cetirizine 10 mg tablet 10 mg PO DAILY simvastatin 20 mg tablet 20 mg PO DAILY ferrous sulfate [FeroSul] 325 mg (65 mg iron) tablet 325 mg PO DAILY diclofenac sodium 75 mg tablet,delayed release (DR/EC) 75 mg PO DAILY furosemide 20 mg tablet 20 mg PO DAILY fluticasone propionate 50 mcg/actuation spray,suspension See Rx Instructions .ROUTE .COMPLEX Rx Instructions: Rx Follow-up/Referrals: Ernie,ARSALAN Forman [Primary Care Provider] - Time of Disposition: 12:40
== END 2024-05-14 12:44 | disposition home or self-care (01) ==
PROVIDERS: Emergency Provider Nurse Practitioner; PCP Physician Assistant
DX: K02.9 Dental caries, unspecified (principal); E11.9 Type 2 diabetes mellitus without complications; Z79.85 Long-term (current) use of injectable non-insulin antidiabetic drugs; I10 Essential (primary) hypertension; E66.9 Obesity, unspecified; Z68.44 Body mass index [BMI] 60.0-69.9, adult
CPT/HCPCS: 99213; G0463

== ENCOUNTER 2024-11-01 12:40 | Emergency (ER) | payer BC, SELFPAY ==
[2024-11-01 13:03] VITALS: BP 183/124; PULSE 96; RESP 20; TEMP 36.7; O2SAT 98
[2024-11-01 13:04] VITALS: BP 181/112
--- NOTE | 2024-11-01 13:26 | ED.HA ---
HPI - Headache General Chief Complaint: Headache Stated Complaint: High Blood Pressure Time Seen by Provider: 11/01/24 13:10 Source: patient and RN notes reviewed Mode of arrival: ambulatory Limitations: no limitations History of Present Illness HPI Narrative: 44-year-old female presents Express Care complaining of hypertension and headache. Patient has a history of hypertension has been out of her medications for approximately 30 days. Patient said her previous PCP left the office and canceled her recent appointment and she is unable to see 1 in that office currently. Patient is currently in the process of finding a new PCP. Patient yesterday she developed headache has persistent since yesterday. Patient reports headache is mild rates at a 4/10. Patient took a Tylenol with some relief. Patient says she used to take lisinopril and furosemide for hypertension. Says she is also has a history of diabetes. Patient denies any severe are unusual headaches, patient denies any of their clap headaches, vision changes, double vision, nausea, vomiting, focal weakness, slurred speech, facial droop, chest pains, difficulty breathing, any other symptoms. Patient says she is also under lot of stress as she is taking care family members kids because the patient has family members in the hospital and she has to make decisions about in the life care for this family member. Related Data Home Medications ?Medication ?Instructions ?Recorded ?Confirmed ?Last Taken ?Type lisinopril 10 mg tablet 10 mg PO DAILY 11/10/20 01/25/24 Unknown History dulaglutide 3 mg/0.5 mL 3 mg subcut DIRECTED 09/17/22 11/01/24 Unknown History subcutaneous pen injector (Trulicity) Held on 11/01/24. Instructions: Patient no longer taking cetirizine 10 mg tablet 10 mg PO DAILY 01/25/24 11/01/24 Unknown History Held on 11/01/24. Instructions: Patient no longer taking diclofenac sodium 75 mg 75 mg PO DAILY 01/25/24 11/01/24 Unknown History tablet,delayed release Held on 11/01/24. Instructions: Patient no longer taking ferrous sulfate 325 mg (65 mg 325 mg PO DAILY 01/25/24 01/25/24 Unknown History iron) tablet (FeroSul) fluticasone propionate 50 See Rx Instructions .Route .COMPLEX 01/25/24 01/25/24 Unknown History mcg/actuation nasal spray,suspension furosemide 20 mg tablet 20 mg PO DAILY 01/25/24 01/25/24 Unknown History simvastatin 20 mg tablet 20 mg PO DAILY 01/25/24 01/25/24 Unknown History Allergies Allergy/AdvReac Type Severity Reaction Status Date / Time No Known Allergies Allergy Verified 01/25/24 08:12 Review of Systems Review of Systems: CONSTITUTIONAL: Denies fever, chills, or sweats. EYES: Denies visual changes, double vision, redness, or discharge. ENT: Denies rhinorrhea, congestion, sore throat, or otalgia. CARDIOVASCULAR: Denies chest pain, palpitations, dizziness, lightheadedness, or edema. RESPIRATORY: Denies cough or dyspnea. GASTROINTESTINAL: Denies abdominal pain, nausea, vomiting, or diarrhea. GENITOURINARY: Denies dysuria or hematuria. SKIN: Denies rash or itching. MUSCULOSKELETAL: Denies back pain, joint pain, or myalgia. NEUROLOGIC: Positive for headache. Negative for confusion, loss of consciousness, seizures, focal weakness, slurred speech, facial droop, numbness, or weakness. PSYCHIATRIC: Denies anxiety or depression. All other systems reviewed are negative, except as documented in HPI. PMFSH Past Medical History Medical History Obesity Inflammation of joint of left knee Diabetes Hypertension Surgical History Surgical History No history of previous surgery Family History Family History Other Family history non-contributory Social History Social History Smoking status: Never smoker Alcohol intake: unknown Substance use: unknown Living arrangements: with family Gender identity (if verbalized by the patient): Female Comments At the time of my signature, I reviewed and agree with the nursing past medical, surgical, social, and family history. There is no relevant family history pertinent to the patient complaint. Exam Narrative: GENERAL: This is a well-nourished, well-developed adult, in no apparent distress. They are non ill-appearing, nontoxic appearing. HEAD: normocephalic, atraumatic. EYES: Sclera clear/white. Conjunctiva normal. Vision is grossly intact. Extraocular movements intact. Pupils PERRLA. EARS: External ears normal, Hearing grossly intact. NOSE: External nose normal THROAT: Mucous membranes moist, NECK: Neck supple, CARDIOVASCULAR: Regular rate and rhythm without murmurs, gallops, or rubs. RESPIRATORY: Clear to auscultation. Breath sounds equal bilaterally. No wheezes, rales, or rhonchi. SKIN: warm, Dry, intact with no suspicious lesions or rash, good texture and turgor. NEURO: awake, alert, and oriented to person, place and time. There were no obvious focal neurologic abnormalities. Cranial nerve 2-12 grossly intact. No facial droop. Speech is clear. No pronator drift. No limb ataxia. Gait is strong and steady. EXTREMITIES: No joint tenderness, effusion, or edema noted. Course Course Emergency Course: Portions of this record may have been created with voice recognition software Level of Care: Express Care Visit Vital Signs Vital signs: Vital Signs Temperature 98.1 F 11/01/24 13:03 Pulse Rate 96 11/01/24 13:03 Respiratory Rate 20 11/01/24 13:03 Blood Pressure 183/124 H 11/01/24 13:03 Pulse Oximetry 98 11/01/24 13:03 Temperature 98.1 F 11/01/24 13:03 Pulse Rate 96 11/01/24 13:03 Respiratory Rate 20 11/01/24 13:03 Blood Pressure 181/112 H 11/01/24 13:04 Pulse Oximetry 98 11/01/24 13:03 Reviewed MDM - Headache MDM Narrative Medical decision making narrative: Patient hypertensive today in the Express Care. Patient reports a mild headache. No neurological symptoms. Patient neurologically intact. No chest pain or breathing problems. Otherwise patient is hemodynamically stable. Offered patient ER transfer given her headache and hypertension are level care and further evaluation and management of her symptoms and patient adamantly refused to go to the ER. Will go ahead and refill patient's lisinopril and furosemide for her hypertension no give her referral to our on-call PCP in along with a list of PCP she may try to get established with. Will refill her medication for 1 month to over time to get established with a PCP. Strict ER precautions discussed with patient specially developed a worsening headache, worst headache of her life, dizziness, lightheadedness, nausea, vomiting, chest pain, difficulty breathing, focal weakness, loss of consciousness, slurred speech, facial drooping, seizures, or any serious concerns. Discussed physical exam findings. Advised supportive measures and signs/symptoms to go to the ER. Pt is appropriate for outpt treatment and f/u. Differential Diagnosis Differential diagnosis: Likely migraine, headache and other (Hypertensive urgency, hypertensive crisis, hypertension, medication refill) Critical Care Time Critical Care Time Critical Care Time: No Discharge Plan Discharge Clinical Impression: Medication refill Hypertension Qualifiers: Hypertension type: unspecified Qualified Code(s): I10 - Essential (primary) hypertension Patient Disposition: Home Condition: Stable Instructions: DASH Eating Plan (ED), Hypertension (ED) Additional Instructions: You have been given a 30 day prescription of your blood pressure medications. Please take them as directed. You have been referred to the on-call primary care provider in given a list of primary you may try to follow-up with. Please follow-up with with a primary care provider ideally in the next 3-5 days. Please go to the ER if you develop worsening headaches, worst headache of your life, vision changes, double vision, nausea, vomiting, confusion, slurred speech, one-sided weakness, dizziness, lightheadedness, loss of consciousness, chest pain, difficulty breathing, fevers, or any serious concerns Patient Language: Gibraltarian Prescriptions: New lisinopril 10 mg tablet 10 mg PO DAILY Qty: 30 0RF furosemide [Lasix] 20 mg tablet 20 mg PO DAILY 30 Days Qty: 30 0RF No Action lisinopril 10 mg tablet 10 mg PO DAILY Trulicity 3 mg/0.5 mL pen injector 3 mg SUBCUT DIRECTED fluticasone propionate [Flonase Allergy Relief] 50 mcg/actuation spray,suspension 1 spray intranasal BID Qty: 16 0RF Rx Instructions: administer into each nostril loratadine [Claritin] 10 mg tablet 10 mg PO DAILY Qty: 30 0RF cetirizine 10 mg tablet 10 mg PO DAILY simvastatin 20 mg tablet 20 mg PO DAILY ferrous sulfate [FeroSul] 325 mg (65 mg iron) tablet 325 mg PO DAILY diclofenac sodium 75 mg tablet,delayed release (DR/EC) 75 mg PO DAILY furosemide 20 mg tablet 20 mg PO DAILY fluticasone propionate 50 mcg/actuation spray,suspension See Rx Instructions .ROUTE .COMPLEX Rx Instructions: Rx Follow-up/Referrals: Rashaad De Leon MD [Physician, Family Practice] - 3 Days Time of Disposition: 13:17
== END 2024-11-01 13:24 | disposition home or self-care (01) ==
PROVIDERS: PCP Physician Assistant
DX: I10 Essential (primary) hypertension (principal); E11.9 Type 2 diabetes mellitus without complications; Z79.85 Long-term (current) use of injectable non-insulin antidiabetic drugs; E66.9 Obesity, unspecified
CPT/HCPCS: 99213; G0463

== ENCOUNTER 2024-11-02 03:33 | Emergency (ER) | payer BC, SELFPAY ==
--- OUTSIDE RECORDS SUMMARY | 2024-11-02 03:35 | XMS_ITS | Clinical Summary ---
Author Organization [facility] Address [address] [place] [address] Care Team Providers Care Squeezer Operator Name Role Phone Hodan Flores PA-C Primary Care Provider [phone] Family History Medical History Relation Comments Breast Cancer Maternal Aunt Breast Cancer Sister Relation Status Comments Maternal Aunt Alive Sister Social History Tobacco Use Types Packs/Day Years Used Date Smoking Tobacco: Never Assessed Comments Unknown Sex and Gender Information Value Date Recorded Sex Assigned at Not on file Legal Sex Female 1:37 PM MACHINE PAN GREASER Gender Identity Not on file Sexual Orientation Not on file Plan of Treatment Health Maintenance Due Date Last Done Comments Cervical Cancer Screening Pa p Smear (Age 30 to 64) Every 3 Years 1981 Annual Physical 1984 Hepatitis C 06/23/1999 DTaP, Tdap and Td Vaccines ( 1 - Tdap) 2000 Hepatitis B Vaccines (1 of 3 - 19+ 3-dose series) 2000 HPV Vaccines (1 - 3-dose SCD M series) 2008 Cervical Cancer Screening Pa p with HPV Testing (Age 30 to 64) Every 5 Years 06/23/2011 Cervical Cancer Screening with HPV 06/23/2011 COVID-19 Vaccine (2023-2 5 season) 2024 Mammogram Screening 12/27/2025 12/28/2023 Meningococcal B Vaccine Aged Out No l onger eligible based on patient's age to complete this topic Meningococcal Vaccine Aged Out No joanna arianne eligible based on patient's age to complete this topic Pneumococcal Vaccine: Pediat rics (0 to 5 Years) and At-Risk Patients (6 to 49 Years) Aged Out No longer eligi ble based on patient's age to complete this topic RSV Immunizations Under 20 Months Aged Out No longer eligible based on patient's age to complete this topic Procedures Procedure Name Priority Date/Time Associated Diagnosis Comments MG SCREENING W LILLIE CRISSY DIGI Routine 12/28/2023 9:01 AM MACHINE PAN GREASER Encounter for screening mammogram for malignant neoplasm of breast from Last 3 Months or Most Recently Relevant to Health Maintenance Results * MG SCREENING W LILLIE CRISSY DIGI (12/28/2023 9:01 AM MACHINE PAN GREASER) Anatomical Region Laterality Modality Breast Bilateral Mammography 12/28/2023 10:3 5 AM MACHINE PAN GREASER Impressions 12/28/2023 10:40 AM MACHINE PAN GREASER ===== IMPRESSION: ===== 1. No mammographic evidence of malignancy. Assessment: ACR BI-RADS 2 - BENIGN FINDING(S) Recommendation: 1:Routine Screening Bilateral Comments: Ordered By: HODAN FLORES Interpreted By: Jamarcus Carbone, 12/28/2023 10:35 AM Narrative 12/28/2023 10:40 AM MACHINE PAN GREASER [facility] [address] [place] [address] EXAMINATION: Digital bilateral screening mammogram with 3-D tomosynthesis EXAM DATE/TIME: 12/28/2023 8:36 AM REASON FOR EXAM: Screening Breast carcinoma in sister at age 39. Maternal aunt with breast carcinoma COMPARISON: Baseline exam Technique: Digital screening mammography of both breasts was performed in addition to 3-D Tomosynthesis technique. This study was read with the assistance of a computer-aided detection system. Tissue density: The breasts are heterogeneously dense, which may obscure small masses. Findings: Multiple bilateral benign appearing nodules. There is no focal asymmetry, dominant mass lesion, area of skin thickening, or cluster of suspicious appearing calcifications in either breast to suggest malignancy. us Hodan Flores PA-C MAMMO Final Resul t from Last 3 Months or Most Recently Relevant to Health Maintenance Insurance [facility] C/O PROVIDER SERVICES ARSALAN JAMES [id number] Care Teams Squeezer Operator Relationship Specialty Start Date End Date Hodan Flores PA-C PCP - General NURSE PRACTITIONER 02/07/24
--- OUTSIDE RECORDS SUMMARY | 2024-11-02 03:35 | XMS_ITS | Encounter Summary ---
Author Organization [facility] Facility Care Team Providers Care Licensed Acupuncturist Name Role Phone Yelena Caicedo Primary Care Provider [phone]- [phone] Encounter Details Date Type Department Care Team (Latest Contact Info) Description 01/12/2016 Orders Only [facility] CLINCON[facility] ProviderSandor MD [address] [place] [id number] Social History Tobacco Use Types Packs/Day Years Used Date Smoking Tobacco: Never Assessed Comments Unknown Sex and Gender Information Value Date Recorded Sex Assigned at Not on file Legal Sex Female 7:37 PM DIRECTOR OF STAFF DEVELOPMENT Gender Identity Not on file Sexual Orientation Not on file documented as of this encounter Plan of Treatment Not on file documented as of this encounter Procedures Procedure Name Priority Date/Time Associated Diagnosis Comments CARDIOLOGY REPORT 01/14/2016 12: 00 AM DIRECTOR OF STAFF DEVELOPMENT documented in this encounter Results * CARDIOLOGY REPORT (01/14/2016 12:00 AM DIRECTOR OF STAFF DEVELOPMENT) Anatomical Region Laterality Modality Other Narrative 01/14/2016 12:00 AM DIRECTOR OF STAFF DEVELOPMENT Ordered by an unspecified provider. Historical Provider [facility] MATHIEU PARKER Final Result documented in this encounter Visit Diagnoses Not on filedocumented in this encounter Care Teams Licensed Acupuncturist Relationship Specialty Start Date End Date Yelena Caicedo PA [address] [place], [place] [id number] PCP - General Internal Medicine 06/07/18 documented as of this encounter
[2024-11-02 03:36] VITALS: BP 170/113; PULSE 95; RESP 18; O2SAT 99
[2024-11-02 04:03] VITALS: BP 158/98; PULSE 78; PULSE 80; RESP 17; O2SAT 99
--- NOTE | 2024-11-02 04:19 | ED.GENADULT ---
HPI - General Adult General Chief complaint: Unspecified Stated complaint: high blood pressure Time Seen by Provider: 11/02/24 03:53 History of Present Illness HPI narrative: This is a 44 old female presenting ED with concerns about her blood pressure. Patient says that she was unable to sleep tonight because her younger sister is intubated with stage IV breast cancer and they are considering a terminal extubation in the next day or 2. She has been unable to sleep tonight because her mind is racing. She then developed tingling in her hands and palpitations. She is concerned that this is because of her high blood pressure since she was in the hospital last week and they took her blood pressure and it was elevated. She admits that she is under an incredible amount of stress at this time. She denies fevers chest pain visual changes abdominal pain slurred speech or weakness to any extremity. Patient went to an urgent care about her blood pressure earlier today and started lisinopril 10 mg which she has been on the past. Patient is intermittently tearful throughout the interview. Related Data Home Medications ?Medication ?Instructions ?Recorded ?Confirmed ?Last Taken ?Type lisinopril 10 mg tablet 10 mg PO DAILY 11/10/20 01/25/24 Unknown History dulaglutide 3 mg/0.5 mL 3 mg subcut DIRECTED 09/17/22 11/01/24 Unknown History subcutaneous pen injector (Trulicity) Held on 11/01/24. Instructions: Patient no longer taking cetirizine 10 mg tablet 10 mg PO DAILY 01/25/24 11/01/24 Unknown History Held on 11/01/24. Instructions: Patient no longer taking diclofenac sodium 75 mg 75 mg PO DAILY 01/25/24 11/01/24 Unknown History tablet,delayed release Held on 11/01/24. Instructions: Patient no longer taking ferrous sulfate 325 mg (65 mg 325 mg PO DAILY 01/25/24 01/25/24 Unknown History iron) tablet (FeroSul) fluticasone propionate 50 See Rx Instructions .Route .COMPLEX 01/25/24 01/25/24 Unknown History mcg/actuation nasal spray,suspension furosemide 20 mg tablet 20 mg PO DAILY 01/25/24 01/25/24 Unknown History simvastatin 20 mg tablet 20 mg PO DAILY 01/25/24 01/25/24 Unknown History Allergies Allergy/AdvReac Type Severity Reaction Status Date / Time No Known Allergies Allergy Verified 01/25/24 08:12 [facility] Past Medical History Medical History Obesity Inflammation of joint of left knee Diabetes Hypertension Surgical History Surgical History No history of previous surgery Family History Family History Other Family history non-contributory Social History Social History Smoking status: Never smoker Alcohol intake: unknown Substance use: unknown Living arrangements: with family Gender identity (if verbalized by the patient): Female Exam Narrative: APPEARANCE: Patient appears stressed and anxious. She is intermittently crying during the interview Head: atraumatic. EYES: EOMI, NOSE: Atraumatic NECK: Trachea midline RESPIRATORY: No increased rate of breathing clear to auscultation CARDIOVASCULAR: RRR, no peripheral edema ABDOMINAL: Non-distended soft nontender MUSCULOSKELETAl: No obvious deformities NEURO: Alert. Cranial nerves 2-12 grossly intact. Sensation light touch, motor function cerebellar function intact for 4 extremities. Gait exam was normal. SKIN:: Warm, dry. Normal color PSYCHIATRIC: Normal affect Course Vital Signs Vital signs: Vital Signs Pulse Rate 95 11/02/24 03:36 Respiratory Rate 18 11/02/24 03:36 Blood Pressure 170/113 H 11/02/24 03:36 Pulse Oximetry 99 11/02/24 03:36 Pulse Rate 78 11/02/24 04:03 Respiratory Rate 17 11/02/24 04:03 Blood Pressure 158/98 H 11/02/24 04:03 Pulse Oximetry 99 11/02/24 04:03 Medical Decision Making [facility] Narrative Medical decision making narrative: -Course: 44-year-old female presenting with concerns about her blood pressure. Patient is under a significant amount of stress due to the impending terminal extubation of her sister.. Her physical exam is unremarkable. Her blood pressures are are slightly elevated at 158/98. Given her emotional state do not think it would be prudent to make decisions on long-term treatment this time. She will be given a referral to a primary care physician. Patient does say she was having significant trouble sleeping and will be given a p.o. dose of Valium. -DDX includes but is not limited to: Stress reaction, hypertension, anxiety attack -Co-morbidities complicating care: Hypertension diabetes Vital Signs Vital Signs: Vital Signs Pulse Rate 95 11/02/24 03:36 Respiratory Rate 18 11/02/24 03:36 Blood Pressure 170/113 H 11/02/24 03:36 Pulse Oximetry 99 11/02/24 03:36 Pulse Rate 78 11/02/24 04:03 Respiratory Rate 17 11/02/24 04:03 Blood Pressure 158/98 H 11/02/24 04:03 Pulse Oximetry 99 11/02/24 04:03 Discharge Plan Discharge Clinical Impression: Stress Patient Disposition: Home Condition: Stable Instructions: Antibiotic Form, Stress (ED), Chronic Hypertension (ED) Additional Instructions: You were seen in the emergency department for high blood pressure. Please follow-up with the primary care physician listed below. You develop chest pain difficulty breathing slurred speech or any weakness to any extremity please return to the emergency department. Please continue taking your lisinopril. Patient Language: Danish Prescriptions: No Action lisinopril 10 mg tablet 10 mg PO DAILY Trulicity 3 mg/0.5 mL pen injector 3 mg SUBCUT DIRECTED lisinopril 10 mg tablet 10 mg PO DAILY Qty: 30 0RF furosemide [Lasix] 20 mg tablet 20 mg PO DAILY 30 Days Qty: 30 0RF fluticasone propionate [Flonase Allergy Relief] 50 mcg/actuation spray,suspension 1 spray intranasal BID Qty: 16 0RF Rx Instructions: administer into each nostril loratadine [Claritin] 10 mg tablet 10 mg PO DAILY Qty: 30 0RF cetirizine 10 mg tablet 10 mg PO DAILY simvastatin 20 mg tablet 20 mg PO DAILY ferrous sulfate [FeroSul] 325 mg (65 mg iron) tablet 325 mg PO DAILY diclofenac sodium 75 mg tablet,delayed release (DR/EC) 75 mg PO DAILY furosemide 20 mg tablet 20 mg PO DAILY fluticasone propionate 50 mcg/actuation spray,suspension See Rx Instructions .ROUTE .COMPLEX Rx Instructions: Rx Follow-up/Referrals: Ernie,ARSALAN Forman [Primary Care Provider, Family Practice] - 1 Week Referral Note: HTN, grief reaction
--- OUTSIDE RECORDS SUMMARY | 2024-11-02 04:19 | XMS_ITS | Encounter Summary ---
Author Organization [facility] Facility Care Team Providers Care Commercial Pilot Name Role Phone Yelena Caicedo Primary Care Provider [phone]- [phone] Encounter Details Date Type Department Care Team (Latest Contact Info) Description 01/12/2016 Orders Only [facility] CLINCONV ProviderSandor MD [address] [place] [id number] Social History Tobacco Use Types Packs/Day Years Used Date Smoking Tobacco: Never Assessed Comments Unknown Sex and Gender Information Value Date Recorded Sex Assigned at Not on file Legal Sex Female 7:37 PM CASHIER SELF SERVICE GASOLINE Gender Identity Not on file Sexual Orientation Not on file documented as of this encounter Plan of Treatment Not on file documented as of this encounter Procedures Procedure Name Priority Date/Time Associated Diagnosis Comments CARDIOLOGY REPORT 01/14/2016 12: 00 AM CASHIER SELF SERVICE GASOLINE documented in this encounter Results * CARDIOLOGY REPORT (01/14/2016 12:00 AM CASHIER SELF SERVICE GASOLINE) Anatomical Region Laterality Modality Other Narrative 01/14/2016 12:00 AM CASHIER SELF SERVICE GASOLINE Ordered by an unspecified provider. Historical Provider [facility] MATHIEU PARKER Final Result documented in this encounter Visit Diagnoses Not on filedocumented in this encounter Care Teams Commercial Pilot Relationship Specialty Start Date End Date Yelena Caicedo PA [address] [place], [place] [id number] PCP - General Internal Medicine 06/07/18 documented as of this encounter
--- OUTSIDE RECORDS SUMMARY | 2024-11-02 04:19 | XMS_ITS | Clinical Summary ---
Author Organization [facility] Address [address] [place] [id number] Care Team Providers Care Director Of Sports Performance Name Role Phone Hodan Flores PA-C Primary Care Provider [phone] Family History Medical History Relation Comments Breast Cancer Maternal Aunt Breast Cancer Sister Relation Status Comments Maternal Aunt Alive Sister Social History Tobacco Use Types Packs/Day Years Used Date Smoking Tobacco: Never Assessed Comments Unknown Sex and Gender Information Value Date Recorded Sex Assigned at Not on file Legal Sex Female 1:37 PM [employer]ANT PROPAG[employer] Gender Identity Not on file Sexual Orientation [...] LILLIE CRISSY DIGI Routine 12/28/2023 9:01 AM PLANT PROPAGATOR Encounter for screening mammogram for malignant neoplasm of breast from Last 3 Months or Most Recently Relevant to Health Maintenance Results * MG SCREENING W LILLIE CRISSY DIGI (12/28/2023 9:01 AM PLANT PROPAGATOR) Anatomical Region Laterality Modality Breast Bilateral Mammography 12/28/2023 10:3 5 AM PLANT PROPAGATOR Impressions 12/28/2023 10:40 AM PLANT PROPAGATOR ===== IMPRESSION: ===== 1. No mammographic evidence of malignancy. Assessment: ACR BI-RADS 2 - BENIGN FINDING(S) Recommendation: 1:Routine Screening Bilateral Comments: Ordered By: HODAN FLORES Interpreted By: Jamarcus Carbone, 12/28/2023 10:35 AM Narrative 12/28/2023 10:40 AM PLANT PROPAGATOR [facility] [address] [place] [address] EXAMINATION: Digital bilateral screening mammogram with 3-D [...] Most Recently Relevant to Health Maintenance Insurance [facility] C/O PROVIDER SERVICES ARSALAN JAMES [id number] Care Teams Director Of Sports Performance Relationship Specialty Start Date End Date Hodan Flores PA-C PCP - General NURSE PRACTITIONER 02/07/24
[2024-11-02] MEDS: diazePAM (*CRX) 5 MG TABLET PO (04:29)
== END 2024-11-02 04:31 | disposition home or self-care (01) ==
PROVIDERS: Emergency Provider Emergency Medicine; PCP Physician Assistant
DX: F43.9 Reaction to severe stress, unspecified (principal); E11.9 Type 2 diabetes mellitus without complications; I10 Essential (primary) hypertension; Z79.899 Other long term (current) drug therapy
CPT/HCPCS: 99283; A9270